=== PATIENT | female | born 1990 | race Caucasian/White ===

== ENCOUNTER 2016-04-03 14:35 | Outpatient (CLI) | payer BC ==
[~2016-04-03] VITALS: Ht 167.6 cm; Wt 67.3 kg
[~2016-04-03 14:35] MED LIST: MOTRIN800 MG PO; PERCOCET 5/31 TABLET PO
[2016-04-03 14:55] VITALS: BP 109/62
[2016-04-03] MEDS ORDERED: PRENATAL VITAM1 EA11 PO (15:55)
[2016-04-03] MEDS ORDERED: METFORMIN HCL1000 MG PO (15:56)
== END 2016-04-03 16:07 | disposition home or self-care (01) ==
LOC: LDRP-OP 14:35 → 2WEST 14:36
DX: O36.8130 Decreased fetal movements, third trimester, not applicable or unspecified (principal); O99.89 Other specified diseases and conditions complicating pregnancy, childbirth and the puerperium; Z3A.30 30 weeks gestation of pregnancy
CPT/HCPCS: 59025; G0378

== ENCOUNTER 2016-05-30 07:09 | Inpatient (IN) | payer BC ==
[2016-05-30] VITALS (21 sets, daily range): BP systolic 84–152; BP diastolic 50–97
[~2016-05-30] VITALS: Ht 167.6 cm; Wt 67.3 kg
[~2016-05-30 07:09] MED LIST changes: +METFORMIN HCL1000 MG PO; +PRENATAL VITAM1 EA11 PO
[2016-05-30 08:25] LABS: POINT-OF-CARE METER ID UU13113801
[2016-05-30] MEDS ORDERED: FIORICET 50-301 EACH PO (08:29)
[2016-05-30] MEDS ORDERED: EXTRA STRENGTH500 M1 PO (08:29)
[2016-05-30] MEDS ORDERED: TUMS500 MG PO (08:30)
[2016-05-30 08:31] LABS: EOSINOPHIL (%) 1.8 % (0-5); EOSINOPHIL COUNT 0.2 K/uL (0-0.3); HEMATOCRIT 26.3 % (36.0-46.0); IMMATURE GRANULOCYTE (%) 0.8 % (0.0-0.7); IMMATURE GRANULOCYTE COUNT 0.1 K/uL; INSTRUMENT ABS NEUTROPHIL CT 6.4 K/uL; LYMPHOCYTE COUNT 3.3 K/uL (1.0-2.8); MCH 29.7 PG (29.0-34.0); MCHC 32.3 G/DL (30.0-36.0); MEAN PLAT.VOLUME 10.9 uM^3 (9.5-12.4); MONOCYTE (%) 6.5 % (3-12); MONOCYTE COUNT 0.7 K/uL (0-0.8); NEUTROPHIL (%) 59.6 % (45-76); NEUTROPHIL COUNT 6.4 K/uL (1.8-6.4); PLATELET COUNT 353 K/uL (156-360); RBC DIS.WIDTH-CV 13.3 % (11.8-14.6); RBC DIS.WIDTH-SD 44.4 % (39-53); RED BLOOD COUNT 2.86 M/uL (3.80-5.20); WHITE BLOOD COUNT 10.8 K/uL (4.1-10.2)
[2016-05-30] MEDS ORDERED: IBUPROFEN800 MG PO (15:43)
[2016-05-31 08:15] VITALS: BP 118/74
[2016-05-31 08:54] LABS: EOSINOPHIL (%) 1.4 % (0-5); EOSINOPHIL COUNT 0.2 K/uL (0-0.3); HEMATOCRIT 24.7 % (36.0-46.0); IMMATURE GRANULOCYTE (%) 0.6 % (0.0-0.7); IMMATURE GRANULOCYTE COUNT 0.1 K/uL; INSTRUMENT ABS NEUTROPHIL CT 5.8 K/uL; MCH 29.9 PG (29.0-34.0); MCV 93.6 FL (83-99); MEAN PLAT.VOLUME 11.3 uM^3 (9.5-12.4); MONOCYTE (%) 6.5 % (3-12); MONOCYTE COUNT 0.7 K/uL (0-0.8); NEUTROPHIL (%) 53.8 % (45-76); NEUTROPHIL COUNT 5.8 K/uL (1.8-6.4); PLATELET COUNT 317 K/uL (156-360); RBC DIS.WIDTH-CV 13.6 % (11.8-14.6); RBC DIS.WIDTH-SD 45.5 % (39-53); RED BLOOD COUNT 2.64 M/uL (3.80-5.20); WHITE BLOOD COUNT 10.8 K/uL (4.1-10.2)
[2016-05-31] MEDS ORDERED: SLOW RELEASE I160 MG PO (10:32)
[2016-05-31 14:51] VITALS: BP 112/76
== END 2016-05-31 18:30 | disposition home or self-care (01) | DRG 775 ==
LOC: LDRP-OP 07:09 → 2WEST 07:10 → LDRP-OP 07:25 → 2WEST 15:09 → LDRP-OP 07-07 20:10
PROVIDERS: Midwife; Obstetrics & Gynecology
PROC: 10E0XZZ Delivery of Products of Conception, External Approach (ICD-10-PCS; principal; 2016-05-30)
PROC: 00HU33Z Insertion of Infusion Device into Spinal Canal, Percutaneous Approach (ICD-10-PCS; 2016-05-30)
PROC: 3E0R3CZ (ICD-10-PCS; 2016-05-30)
PROC: 3E033VJ Introduction of Other Hormone into Peripheral Vein, Percutaneous Approach (ICD-10-PCS; 2016-05-30)
DX: O24.425 Gestational diabetes mellitus in childbirth, controlled by oral hypoglycemic drugs (principal); O99.02 Anemia complicating childbirth; D50.9 Iron deficiency anemia, unspecified; Z3A.39 39 weeks gestation of pregnancy; Z37.0 Single live birth
CPT/HCPCS: 82948; 85025; C1755; J1050; J3010; J7120

== ENCOUNTER 2017-07-31 18:37 | Observation (INO) | payer BC ==
[~2017-07-31] VITALS: Ht 167.6 cm; Wt 63.6 kg
[~2017-07-31 18:37] MED LIST changes: +EXTRA STRENGTH500 M1 PO; +FIORICET 50-301 EACH PO; +IBUPROFEN800 MG PO; +SLOW RELEASE I160 MG PO; +TUMS500 MG PO
[2017-07-31 19:32] LABS: APPEARANCE CLEAR ((CLEAR)); BILIRUBIN NEGATIVE; BLOOD MODERATE; COLOR YELLOW ((YELLOW)); GLUCOSE (STRIP) NEGATIVE; KETONES NEGATIVE; LEUKOCYTES TRACE; NITRITE NEGATIVE; PROTEIN (STRIP) NEGATIVE; SPECIFIC GRAVITY 1.012 (1.000-1.030); UROBILINOGEN 0.2 MG/DL (0.2-1.0)
[2017-07-31 19:36] LABS: BACTERIA RARE /HPF; EPITHELIAL CELLS RARE /HPF; MUCUS TRACE /LPF; RED BLOOD CELLS 0-5 /HPF (0-5); UCUL ADDED? NO; WHITE BLOOD CELLS 0-5 /HPF (0-5)
[2017-07-31 19:39] LABS: HEMATOCRIT 35.4 % (36.0-46.0); HEMOGLOBIN 11.7 G/DL (11.9-15.5); MCH 29.3 PG (29.0-34.0); MCHC 33.1 G/DL (30.0-36.0); MCV 88.5 FL (83-99); PLATELET COUNT 513 K/uL (156-360); RBC DIS.WIDTH-CV 15.9 % (11.8-14.6); RBC DIS.WIDTH-SD 53.1 % (39-53); WHITE BLOOD COUNT 12.2 K/uL (4.1-10.2)
[2017-07-31 19:56] LABS: ALBUMIN 4.7 g/dL (3.2-4.8); CHLORIDE 109 mEq/L (99-109); POTASSIUM 3.9 mEq/L (3.7-5.4); SODIUM 142 mEq/L (136-147)
[2017-07-31 19:58] LABS: GLUCOSE 96 mg/dL (70-99)
[2017-07-31 19:59] LABS: TOTAL PROTEIN 7.6 g/dL (6.4-8.3)
[2017-07-31 20:00] LABS: TOTAL BILIRUBIN 0.2 mg/dL (0.0-1.0)
[2017-07-31 20:02] LABS: ALKALINE PHOSPHATASE 59 IU/L (3-129); CREATININE 0.8 mg/dL (0.6-1.3); GFR ESTIMATE (CALCULATED) > 59 mL/min/
[2017-07-31 20:03] LABS: UREA NITROGEN (BUN) 9 mg/dL (9-23)
[2017-07-31 20:04] LABS: AST (GOT) 9 IU/L (2-34)
[2017-07-31 20:05] LABS: ALT (GPT) 9 IU/L (3-49)
[2017-07-31 20:11] LABS: QUANTITATIVE HCG 42.2 MIU/ML
[2017-07-31] MEDS ORDERED: EXCEDRIN MIGRA1 EAC3 PO (23:31)
[2017-07-31 23:50] VITALS: BP 107/64
[2017-07-31] MEDS ORDERED: DOXYCYCLINE HY100 MG PO (23:56)
[2017-07-31] MEDS ORDERED: IBUPROFEN800 MG PO (23:58)
[2017-07-31] MEDS ORDERED: ENDOCET 5-3251 EACH PO (23:58)
== END 2017-08-01 03:56 | disposition home or self-care (01) ==
LOC: EME 18:37 → EDOF 23:37 → ENRESERV 23:38 → EDOF 08-01 00:13 → 2EAST 08-01 01:40
PROC: 10D17ZZ Extraction of Products of Conception, Retained, Via Natural or Artificial Opening (ICD-10-PCS; principal; 2017-07-31)
DX: O03.4 Incomplete spontaneous abortion without complication (principal); F17.200 Nicotine dependence, unspecified, uncomplicated; Z88.0 Allergy status to penicillin
CPT/HCPCS: 76801; 80053; 81003; 84702; 85027; 88305; 99281; 99285; G0378; J0330; J1100; J2250; J2405; J3010; J7050